=== PATIENT | female | born 1990 | race Two or more races ===

== ENCOUNTER 2020-08-30 17:29 | Emergency (ER) | payer OTHER, BC ==
[2020-08-30] MEDS ORDERED: Ketorolac 60 MG/2 ML SDV IM ONE (17:44)
[2020-08-30] MEDS ORDERED: Acetaminophen/HYDROcodone 325-5 MG Tab PO STA (18:48)
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
== END 2020-08-30 20:01 | disposition home or self-care (01) ==
LOC: FB.ED 17:29
DX: S16.1XXA Strain of muscle, fascia and tendon at neck level, initial encounter (principal); S66.812A Strain of other specified muscles, fascia and tendons at wrist and hand level, left hand, initial encounter; S86.812A Strain of other muscle(s) and tendon(s) at lower leg level, left leg, initial encounter; Z88.0 Allergy status to penicillin; Z79.899 Other long term (current) drug therapy; V49.49XA Driver injured in collision with other motor vehicles in traffic accident, initial encounter; Y92.410 Unspecified street and highway as the place of occurrence of the external cause
CPT/HCPCS: 36415; 70450; 72125; 73080; 73562; 80053; 80307; 85025; 85610; 85730; 96372; 99284; A9270; J1885